=== PATIENT | male | born 1980 | race Hispanic/Latino ===

== ENCOUNTER 2017-03-28 16:27 | Emergency (ER) | payer OTHER, MEDICARE ==
[2017-03-28 16:47] VITALS: BP 128/82; TEMP 99.1
--- NOTE | 2017-03-28 17:19 | ED.PDOC ---
History of Present Illness - General Chief Complaint: Neuro Symptoms/Deficits Stated Complaint: facial drooping Time Seen by Provider: 03/28/17 17:19 Source: family Exam Limitations: clinical condition - cerebral palsy, physical impairment - cerebral palsy - History of Present Illness Initial Comments: Oleg Hudson 37 y/o male brought by mom stating that he had facial drooping on the right side of his face for the last one week whenever he talks or smiles and sometimes drooling occassionally.Patient talking to mom in garbled speech but no drooling noted.Has cerebral palsy and wheelchair bound Timing/Duration: other - one week ago Severity: moderate Improving Factors: nothing Worsening Factors: nothing Associated Symptoms: denies symptoms Allergies/Adverse Reactions: Allergies Haloperidol [From Haldol] Allergy (Verified 03/28/17 16:47) Penicillins Allergy (Verified 03/28/17 16:47) Review of Systems - Review of Systems Neurological: States: see HPI - as per mom Unable to Obtain Due To: clinical condition Past Medical History (General) - Patient Medical History Hx Asthma: Yes Hx Hypertension: Yes Hx Diabetes: Yes Hx Other PMH: Yes - cerebral palsy Surgical History: other - Vaccination History Immunizations Up to Date: Yes - Social History Hx Tobacco Use: No Hx Alcohol Use: No Hx Substance Use: No Hx Substance Use Treatment: No Hx Depression: No - Activities of Daily Living Patient Lives Alone: No - mom Hospice Agency (if applicable):: None Grooming Ability: Total Assistance Eating (Feeding) Ability: Total Assistance Toileting Ability: Total Assistance - Female History Patient is a Female of Child Bearing Age (10 -59 yrs old): No Patient : No Family Medical History - Family History Mother Family History: Unknown Hx Cardiac Disease: Yes - mom Hx Family Diabetes: Yes - several family members Physical Exam - Physical Exam General Appearance: Alert, No apparent distress Eye Exam: right other - droopy eyelid chronic, left normal Ears, Nose, Throat: hearing grossly normal, normal ENT inspection, normal pharynx Neck: non-tender, full range of motion, supple Respiratory: chest non-tender, lungs clear Cardiovascular/Chest: normal peripheral pulses, regular rate, rhythm, no murmur Peripheral Pulses: radial,right: 1+, radial,left: 1+ Gastrointestinal/Abdominal: normal bowel sounds, non tender, soft, no organomegaly Extremity: no pedal edema, no calf tenderness Neurologic: alert, facial droop - no gross facial droop noted, other - spastic extremities Skin Exam: normal color, warm/dry Lymphatic: no adenopathy Progress - Progress Progress: 03/28/17 18:43 Vital Signs - 8 hr 03/28/17 16:35 Temperature 99.1 F Pulse Rate [ 91 H pulse ox] Respiratory 18 Rate Blood Pressure 128/82 [Left Arm] O2 Sat by Pulse 97 Oximetry - Results/Orders Results/Orders: Laboratory Tests 03/28/17 03/28/17 03/28/17 17:25 17:25 19:00 WBC 12.2 H RBC 5.70 Hgb 15.3 Hct 45.2 MCV 79.2 L MCH 26.9 L MCHC 33.9 RDW 12.8 Plt Count 389 MPV 7.0 L Absolute Neuts (auto) 8.00 H Absolute Lymphs (auto) 3.00 Absolute Monos (auto) 0.70 Absolute Eos (auto) 0.40 Absolute Basos (auto) 0.20 H Neutrophils % 65.1 Lymphocytes % 24.8 Monocytes % 5.7 Eosinophils % 3.1 Basophils % 1.3 Sodium 138 Potassium 3.6 Chloride 104 Carbon Dioxide 23 Anion Gap 14.6 BUN 15 Creatinine 0.47 L BUN/Creatinine Ratio 31.9 H Random Glucose 129 H Serum Osmolality 278.2 Calcium 9.2 Total Bilirubin 0.3 AST 17 ALT 27 Alkaline Phosphatase 90 Serum Total Protein 7.9 Albumin 4.3 Globulin 3.6 H Albumin/Globulin Ratio 1.2 Urine Color Yellow Urine Appearance Clear Urine pH 6.0 Ur Specific Talent 1.025 Urine Protein Negative Urine Glucose (UA) Negative Urine Ketones Negative Urine Blood Negative Urine Nitrite Negative Urine Bilirubin Negative Urine Urobilinogen 1.0 Ur Leukocyte Esterase Negative Urine RBC 0-1 Urine WBC 0 Ur Epithelial Cells 0-1 Urine Bacteria 0 Urine Mucus Small - EKG/XRAY/CT CT Ordered: Yes - head -no acute abnormalities Departure - Departure Clinical Impression: Hx of cerebral palsy, Asymmetry of face Time of Disposition: 19:22 Disposition: Discharge to Home or Self Care Condition: Fair Departure Forms: ED Discharge - Pt. Copy, Patient Portal Self Enrollment Referrals: Karlee Poon NP [Primary Care Provider] - 1-2 Weeks Additional Instructions: FOLLOW UP WITH PRIMARY MD o04/01/2017;Continue with rest of medications
--- NOTE | 2017-03-28 17:53 | CT ---
PROCEDURE: Head HISTORY: facial droop Indication: Same as above Comparison: None Technique: CT of the head was done without intravenous contrast was done in the orthogonal planes. This exam was performed according to our departmental dose-optimization program, which includes automated exposure control, adjustment of the mA and/or KV according to the patient's size and/or use of iterative reconstruction technique. FINDINGS: There is no intracranial hemorrhage, midline shift mass effect or acute focal infarct. If clinical concern exists regarding an acute ischemic/vascular pathology being responsible for patient's symptomatology, an MRI of the brain is more sensitive than the current study, in ruling out such a possibility. There is good carvajal/white matter differentiation. The ventricular system is normal. The mastoid air cells are unremarkable . The paranasal sinuses are unremarkable . There is no visualization of acute fractures involving the calvarium or the skull base. IMPRESSION: There is no acute intracranial abnormality. Electronically signed by: Quinten De Los Santos MD 03/28/2017 5:52 PM CDT Workstation: [id number]
[2017-03-28 19:30] VITALS: O2SAT 96
== END 2017-03-28 20:03 | disposition home or self-care (01) ==
LOC: ER 16:27
DX: Q67.0 Congenital facial asymmetry (principal); G80.9 Cerebral palsy, unspecified; I10 Essential (primary) hypertension; E11.9 Type 2 diabetes mellitus without complications; Z88.0 Allergy status to penicillin; Z88.6 Allergy status to analgesic agent

== ENCOUNTER → 2018-09-01 | Outpatient (CLI) | payer MEDICARE, MEDICAID ==
--- NOTE | 2018-09-01 09:15 | CT ---
EXAM DESCRIPTION: Abdoment/Pelvis w/o Contrast CLINICAL HISTORY: R10.9 generalized abdominal pain COMPARISON: None. TECHNIQUE: Noncontrast transaxial CT images of the abdomen and pelvis are obtained. Images are moderately degraded by patient breathing motion artifact limiting detailed evaluation. This exam was performed according to our departmental dose-optimization program, which includes automated exposure control, adjustment of the mA and/or kV according to patient size and/or use of iterative reconstruction technique . FINDINGS: Visualized lung bases show no acute findings. Mild gynecomastia is seen right greater than left. Given the limitations of a noncontrast exam and motion artifact the liver, spleen, pancreas, adrenal glands, and gallbladder are unremarkable. Mild atherosclerotic disease is seen. No nephrolithiasis. No ureteral calcification or obstruction is seen. Urinary bladder is poorly distended but unremarkable. Moderate prostate calcifications are seen. The appendix measures 9 mm greatest diameter without obvious surrounding fat stranding or inflammation. Stomach is poorly distended and unremarkable. No small bowel obstruction or bowel wall thickening is seen. The colon is grossly unremarkable. Stool filled distention of the rectum is seen measuring 6.9 x 6.9 cm. No pathologic lymphadenopathy. No free intraperitoneal air or abnormal fluid collections. Postsurgical changes to the right hip are partly visualized. Postsurgical changes or remote posttraumatic changes to the right acetabulum are seen. 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 There is somewhat shallow acetabula bilaterally. Varus deformity of the right hip is suggested . Mild curvature of the lumbar spine with convexity towards the left. Borderline external iliac chain lymph nodes bilaterally measure up to 9 mm short axis. IMPRESSION: No acute findings on noncontrast CT of the abdomen and pelvis given limitations of the exam from patient motion artifact. The appendix is mildly enlarged, but no wall thickening or associated inflammatory changes are seen to suggest acute appendicitis. No CT evidence of nephrolithiasis or ureteral obstruction. Probable fecal impaction in the rectum is distended with stool. Electronically signed by: Jean Rivas MD 09/01/2018 9:14 AM DATA MODELING SPECIALIST
== END ==
LOC: CT 08:14
PROVIDERS: ATTEND Urology
DX: R10.9 Unspecified abdominal pain (principal)

== ENCOUNTER → 2019-03-09 | Outpatient (CLI) | payer MEDICARE, MEDICAID ==
--- NOTE | 2019-03-09 15:03 | RAD ---
2 Radiographs of the Abdomen. Indication: Abdominal pain Comparison: None. Impression: Mild constipation noted. No signs of obstruction.. No abnormal calcifications. Postsurgical changes of the right hip noted in addition to a coxa magna deformity femoral head and foreshortening of the femoral neck. Electronically signed by: Mike Logan MD 03/09/2019 3:01 PM CDT
== END ==
LOC: YCFC.O 11:59
PROVIDERS: ATTEND Nurse Practitioner Family
DX: Z00.01 Encounter for general adult medical examination with abnormal findings (principal); K59.00 Constipation, unspecified; E11.69 Type 2 diabetes mellitus with other specified complication; E55.9 Vitamin D deficiency, unspecified; Z98.890 Other specified postprocedural states

== ENCOUNTER 2019-06-08 05:48 | Inpatient (IN) | payer MEDICARE, MEDICAID ==
[2019-06-08] MEDS ORDERED: SODIUM CHLORIDE 0.9% (FLUSH) 10 ML SYG IV PRN ×3 (06:34→10:09)
--- NOTE | 2019-06-08 06:35 | ED.PDOC ---
History of Present Illness - History of Present Illness Initial Comments: Pt grand mother c/o fast breathing , difficulty in breathing since 1 day , no fever or chills Timing/Duration: intermittent Severity: mild, moderate Improving Factors: nothing Worsening Factors: nothing Associated Symptoms: shortness of breath <Deny ALVARADO - Last Filed: 06/08/19 06:33> <Darin Robbins - Last Filed: 06/08/19 07:40> - General Chief Complaint: General Stated Complaint: fast, heavy breathing since yesterday Time Seen by Provider: 06/08/19 06:10 - History of Present Illness Allergies/Adverse Reactions: Allergies Ampicillin Allergy (Verified 06/08/19 06:05) Haloperidol [From Haldol] Allergy (Verified 03/28/17 16:47) Penicillins Allergy (Verified 03/28/17 16:47) Home Medications: Ambulatory Orders Baclofen 10 mg PO DAILY 06/08/19 Hydroxyzine HCl 25 mg PO Q6HR PRN 06/08/19 Lisinopril 5 mg PO DAILY 06/08/19 Metformin HCl [Metformin HCl ER] 500 mg PO BID 06/08/19 Naproxen [Naproxen EC] 500 mg PO BID PRN 06/08/19 Phenytoin 125 mg PO BID 06/08/19 Review of Systems - Review of Systems Constitutional: States: no symptoms reported EENTM: States: no symptoms reported Respiratory: States: see HPI Cardiology: States: no symptoms reported Gastrointestinal/Abdominal: States: no symptoms reported Genitourinary: States: no symptoms reported Musculoskeletal: States: no symptoms reported Skin: States: no symptoms reported Neurological: States: no symptoms reported Endocrine: States: no symptoms reported Hematologic/Lymphatic: States: no symptoms reported <Deny ALVARADO - Last Filed: 06/08/19 06:33> Past Medical History (General) - Patient Medical History Hx Seizures: No Hx Stroke: No Hx Dementia: No Hx Asthma: Yes Hx of COPD: No Hx Cardiac Disorders: No Hx Congestive Heart Failure: No Hx Pacemaker: No Hx Hypertension: Yes Hx Thyroid Disease: No Hx Diabetes: Yes Hx Gastroesophageal Reflux: No Hx Renal Disease: No Hx Cancer: No Hx of HIV: No Hx Hepatitis C: No Hx MRSA: No Surgical History: other - Vaccination History Hx Tetanus, Diphtheria Vaccination: No Hx Influenza Vaccination: No - Social History Hx Tobacco Use: No Hx Alcohol Use: No Hx Substance Use: No Hx Substance Use Treatment: No Hx Depression: No - Female History Patient : No <Deny ALVARADO - Last Filed: 06/08/19 06:33> Family Medical History - Family History Mother Family History: Unknown Hx Cardiac Disease: Yes - mom Hx Family Diabetes: Yes - several family members <Deny ALVARADO - Last Filed: 06/08/19 06:33> Physical Exam - Physical Exam General Appearance: Comfortable Eye Exam: bilateral normal Ears, Nose, Throat: hearing grossly normal Neck: non-tender Respiratory: chest non-tender, lungs clear, normal breath sounds Gastrointestinal/Abdominal: non tender, soft Back Exam: normal inspection Extremity: normal range of motion, non-tender, normal inspection Neurologic: other - Mental retardation Skin Exam: normal color <Deny ALVARADO - Last Filed: 06/08/19 06:33> Progress - Progress Progress: 06/08/19 07:25 Pt turned over to me from Dr. Alvarado. Pt w increased resp rate per mom since last night. No fever, cough or respiratory sxs. Pt's CXR is clear but his CMP shows DKA. WBC elevated, possibly reactive, but pt cultured and IV rocephin ordered for possible early PNA. IVF and IV insulin drip begun. Will admit for DKA mgmt. 06/08/19 07:36 Pt'd DD is elevated by I have extremely low clinical suspicion for PE given that his increased respiratory rate is readily explained by DKA. Will not order CTA at this time. Have d/w Dr. Bolivar, hospitalist, who accepts pt for admission. He requests ABG. - Results/Orders Results/Orders: 06/08/19 06:34 IV Care:Saline Lock per Protoc QSHIFT Telemetry .ONCE Sodium Chloride 0.9% (Flush) [Saline Flush Syringe] 10 ml IV PRN PRN EKG Assessment ONCE EKG Stat Pulse Ox Stat Pulse Oximetry Assessment DAILY 06/08/19 07:15 Sodium Chloride 0.9% 1000ML [Ns 1000 ml] 1,000 ml IVS ONCE cefTRIAXone SODIUM [Rocephin] 1 gm Sodium Chl 0.9% 50Ml Min-Bag+ [NS 50ml MINI-BAG+] 50 ml IVPB ONCE 06/08/19 07:17 Sodium Chloride 0.9% (Flush) [Saline Flush Syringe] 10 ml IV PRN PRN 06/08/19 07:18 IV Care:Saline Lock per Protoc QSHIFT URINALYSIS Stat 06/08/19 07:19 EKG Assessment ONCE Pulse Oximetry Assessment DAILY 06/08/19 07:21 GLUCOSE, FINGER STICK Q1H 06/08/19 07:22 BLOOD CULTURE Stat 06/08/19 07:29 LACTIC ACID Stat 06/08/19 07:30 Insulin, Reg.(Human) [HumuLIN R] 250 units Sodium Chl 0.9% 250Ml (Jinny) [NS 250ml (JINNY)] 247.5 ml IVPB Q12H EKG STAT 06/08/19 07:35 ABG [Arterial Blood Gas] Stat 06/08/19 08:21 GLUCOSE, FINGER STICK Q1H 06/08/19 09:00 Pulse Ox Daily 06/08/19 09:21 GLUCOSE, FINGER STICK Q1H 06/08/19 10:21 GLUCOSE, FINGER STICK Q1H Laboratory Results - last 24 hr 06/08/19 06/08/19 06/08/19 06:22 06:22 06:22 WBC 15.0 H RBC 5.70 Hgb 15.5 Hct 46.8 MCV 82.1 MCH 27.2 MCHC 33.2 RDW 12.8 Plt Count 350 MPV 8.1 Absolute Neuts (auto) 8.80 H Absolute Lymphs (auto) 4.50 H Absolute Monos (auto) 1.20 H Absolute Eos (auto) 0.30 Absolute Basos (auto) 0.20 H Neutrophils % 58.6 Lymphocytes % 30.0 Monocytes % 7.9 Eosinophils % 2.2 Basophils % 1.3 PT 10.3 INR 1.03 PTT (SP) 23.2 D-Dimer, Quantitative 0.62 H* Sodium 140 Potassium 3.2 L Chloride 104 Carbon Dioxide 18 L Anion Gap 21.2 H BUN 7 Creatinine 0.75 BUN/Creatinine Ratio 9.3 L POC Glucose Random Glucose 317 H Serum Osmolality 289.5 Calcium 9.2 Magnesium 1.9 Total Bilirubin 0.8 Direct Bilirubin 0.1 Indirect Bilirubin 0.7 AST 85 H ALT 125 H Alkaline Phosphatase 88 Creatine Kinase 302 H* CK-MB (CK-2) 3.3 CK-MB (CK-2) % Not Reportable Troponin I < 0.02 B-Natriuretic Peptide 8.0 Serum Total Protein 7.8 Albumin 4.5 Serum Ketones Negative 06/08/19 07:23 WBC RBC Hgb Hct MCV MCH MCHC RDW Plt Count MPV Absolute Neuts (auto) Absolute Lymphs (auto) Absolute Monos (auto) Absolute Eos (auto) Absolute Basos (auto) Neutrophils % Lymphocytes % Monocytes % Eosinophils % Basophils % PT INR PTT (SP) D-Dimer, Quantitative Sodium Potassium Chloride Carbon Dioxide Anion Gap BUN Creatinine BUN/Creatinine Ratio POC Glucose 281 H Random Glucose Serum Osmolality Calcium Magnesium Total Bilirubin Direct Bilirubin Indirect Bilirubin AST ALT Alkaline Phosphatase Creatine Kinase CK-MB (CK-2) CK-MB (CK-2) % Troponin I B-Natriuretic Peptide Serum Total Protein Albumin Serum Ketones <Darin Robbins - Last Filed: 06/08/19 07:40> Departure <Deny ALVARADO - Last Filed: 06/08/19 06:33> - Departure Time of Disposition: 07:39 <Darin Robbins - Last Filed: 06/08/19 07:40> - Departure Clinical Impression: DKA (diabetic ketoacidoses), Hx of cerebral palsy Disposition: Admit Patient Condition: Fair Home Medications: Ambulatory Orders Baclofen 10 mg PO DAILY 06/08/19 Hydroxyzine HCl 25 mg PO Q6HR PRN 06/08/19 Lisinopril 5 mg PO DAILY 06/08/19 Metformin HCl [Metformin HCl ER] 500 mg PO BID 06/08/19 Naproxen [Naproxen EC] 500 mg PO BID PRN 06/08/19 Phenytoin 125 mg PO BID 06/08/19 Decision To Admit - Decistion To Admit Decision to Admit Reason: Admit from ER Decision to Admit Date: 06/08/19 Decision to Admit Time: 07:40 <Darin Robbins - Last Filed: 06/08/19 07:40> Addendum entered and electronically signed by Darin Robbins MD 06/08/19 07:45: Departure - Departure Clinical Impression: DKA (diabetic ketoacidoses), Hx of cerebral palsy Disposition: Admit Patient Condition: Fair Departure Forms: ED Discharge - Pt. Copy, Patient Portal Self Enrollment Referrals: Karlee Poon NP [Primary Care Provider] - 1-2 Weeks Home Medications: Ambulatory Orders Baclofen 10 mg PO DAILY 06/08/19 Hydroxyzine HCl 25 mg PO Q6HR PRN 06/08/19 Lisinopril 5 mg PO DAILY 06/08/19 Metformin HCl [Metformin HCl ER] 500 mg PO BID 06/08/19 Naproxen [Naproxen EC] 500 mg PO BID PRN 06/08/19 Phenytoin 125 mg PO BID 06/08/19 ED Addendum - ED Addendum Addendum: EKG: sinus tachycardia, rate 113, LAD, nl QRS, T inv III and aVF, nl ST, Q infer ior and anterior. Neg STEMI.
--- NOTE | 2019-06-08 07:02 | RAD ---
EXAM: XR Chest, 1 View CLINICAL HISTORY: sob TECHNIQUE: Frontal view of the chest. COMPARISON: No relevant prior studies available. FINDINGS: Limitations: None. Lungs: Shallow inspiration with mild right medial atelectasis. Pleural space: Unremarkable. No pneumothorax. Heart: Unremarkable. No cardiomegaly. Mediastinum: Unremarkable. Bones/joints: Unremarkable. IMPRESSION: Shallow inspiration with mild right medial atelectasis. Electronically signed by: Shy Acevedo MD 06/08/2019 7:01 AM CDT
[2019-06-08] MEDS ORDERED: cefTRIAXone SODIUM 1 GM in SODIUM CHL 0.9% 50ML MIN-BAG+ 50 ML IVPB ONE (07:15)
[2019-06-08] MEDS ORDERED: SODIUM CHLORIDE 0.9% 1000ML 1,000 ML IVS ONE ×3 (07:15→10:33)
[2019-06-08] MEDS ORDERED: INSULIN, REG.(HUMAN) 250 UNITS in SODIUM CHL 0.9% 250ML (AVIVA) 247.5 ML IVPB SCH ×2 (07:30)
[2019-06-08] MEDS ORDERED: SODIUM CHL 0.9% 50ML MIN-BAG+ 50 ML IVPB ONE (07:40)
[2019-06-08] MEDS ORDERED: cefTRIAXone SODIUM 1 GM VIAL ONE (07:40)
[2019-06-08] MEDS ORDERED: INSULIN, REG.(HUMAN) 100 U/ML VIAL ONE (08:12)
[2019-06-08] MEDS ORDERED: SODIUM CHL 0.9% 250ML (AVIVA) 250 ML IVPB ONE (08:12)
--- NOTE | 2019-06-08 08:27 | HP ---
SUPERVISING PHYSICIAN: Fransisco Hodgson MD HISTORY OF PRESENT ILLNESS: Mr. Hudson is a 39-year-old male with a history of severe mental retardation and cerebral palsy. He was brought to the Emergency Room today via 911 after his family noted that he had been having some increased respiratory efforts, breathing fast, in the last 24 hours and significantly worsened this morning. The family also noted that he had been complaining of some left sided abdominal pain and has been sweating. Both the family and the patient are poor historians. Therefore, most of the history and physical are obtained from the Emergency Room record as well as past medical history from the previous charts. The patient has a history of diabetes and hypertension. On initial presentation to the Emergency Room, his labs showed he had a leukocytosis with a white count of 15,000 with a left shift. His chemistries showed blood sugar on presentation to the Emergency Room of 317. Anion gap was elevated at 21 with a carbon dioxide of 18. ABG was attempted, but not successfully completed. His liver functions showed some elevation of AST at 85 and ALT 125. Troponin was less than 0.02, CPK was slightly elevated at 302. He did have a lactic acid of 3.8 initially on presentation to the Emergency Room, but was hemodynamically stable with initial vital signs showing temperature 98.8, tachycardic at 126 with blood pressure 144/81, saturation 97% on room air. He had a single-view chest x-ray and per radiologic interpretation showed shallow inspirations with mild right medial atelectasis. Urinalysis was not obtained on admission to the Emergency Room. It was initially felt the patient was possibly in diabetic ketoacidosis given that he was acidotic given his anion gap and his blood sugar, but he had negative ketones. Blood cultures were completed and he was started on antibiotics initially to include Rocephin. He was given a liter of IV fluids. He was also started on insulin drip and is now going to be admitted to the Medical/Surgical Floor for continuation of treatment with concerns for possible pneumonia versus bladder infection resulting in hyperglycemia with no evidence of true diabetic ketoacidosis. He was admitted in stable condition. PAST MEDICAL HISTORY: 1. Cerebral palsy and severe mental retardation. 2. Diabetes mellitus. 3. Hypertension. PAST SURGICAL HISTORY: 1. Multiple hip surgeries as a child. 2. No other major medical surgeries. HOME MEDICATIONS: 1. Baclofen 10 mg daily. 2. Naprosyn 500 mg b.i.d. as needed. 3. Lisinopril 5 mg daily. 4. Hydroxyzine 25 mg q.6h. as needed. 5. Phenytoin 25 mg b.i.d. 6. Metformin 500 mg b.i.d. ALLERGIES: AMPICILLIN, HALOPERIDOL, PENICILLIN. REVIEW OF SYSTEMS: Difficult to obtain due to the patient's mental status, but the family reports: CONSTITUTIONAL: He has been having some sweats, but no reported fevers, chills or rigors. No significant weight changes. HEENT: No reported earaches, but has had some complaints of sore throat over the last 24 to 48 hours. 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 RESPIRATORY: As noted in history of present illness, increased respiratory effort. CARDIOVASCULAR: No reported chest pain, palpitations. GASTROINTESTINAL: The family notes he has been complaining of left sided abdominal pain, more to the lower quadrant, but no noted diarrhea, constipation or any other significant bowel habit changes. GENITOURINARY: He has had bladder infections in the past, but the family notes he has had an increase of his output from increased number of wet briefs. NEUROLOGIC: No reported changes with history of cerebral palsy. He is not ambulatory and cannot transfer himself. No report significant changes from baseline. SKIN: No reported lesions, rashes or other changes. HEMATOLOGIC: No reported easy bruising or unexplained bleeding. PHYSICAL EXAMINATION: VITAL SIGNS: Temperature 98.8. Pulse 126. Blood pressure 140/81. Respirations 20. Saturation 97% on room air. GENERAL: The patient appears to be in no acute distress. He appears comfortable. He smiles when you talk to him and shake his hand, but is not completely verbal. He is noted to be at his baseline per his family members. HEENT: Tympanic membranes clear bilaterally. Oropharynx is mildly erythremic , posterior tonsils appear slightly enlarge but without any exudate, moist without any lesions. NECK: Supple, nontender with full range of motion. No jugular venous distention noted. RESPIRATORY: Lungs clear to auscultation, just diminished at the bases. No obvious rhonchi, wheezes or rales. CARDIOVASCULAR: Regular rate and rhythm, but tachycardic on initial exam. No appreciable murmurs, gallops, or rubs. ABDOMEN: Soft. No tenderness noted on palpation of any quadrant. No rebound tenderness, no guarding. Bowel sounds are active. EXTREMITIES: He is moving all extremities ad christina. There is no notable cyanosis, clubbing or edema. NEUROLOGIC: The patient is alert and oriented per baseline per family members. He interacts with family and myself during exam with no notable motor deficits. 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 He does follow basic commands. He moves all extremities ad christina. LABORATORY: White count 15,000, hemoglobin 15.5, hematocrit 46.8, platelet count 350,000, differential without a left shift. Coagulation studies showed normal PT, PTT, but elevated D-dimer at 0.62. Chemistries initially on presentation showed sodium 140 corrected for 317 blood sugar at 143. Potassium 3.2, chloride 104, anion gap elevated at 21 with carbon dioxide 18, lactic acid 3.8, calcium 9.2. Liver functions showed elevated AST and ALT. CPK elevated at 302. Troponins less than 0.02. Serum ketones were negative. Urinalysis pending. MICROBIOLOGY: Influenza swab for A and B PCR is pending. Rapid group A strep is positive. Blood cultures pending. RADIOLOGY: CT of the chest is pending. Chest x-ray in the Emergency Room showed shallow inspirations with mild right medial atelectasis. ASSESSMENT: 1. Metabolic acidosis with elevated blood sugar, but no evidence of diabetic ketoacidosis. Likely source of acidosis is sepsis with presumed community acquired pneumonia with Group A Strep pharyngitis. 2. Sepsis with the patient showing metabolic acidosis and tachycardia with infectious source noted to be Group A pharyngitis and concern for developing pneumonia. 3. Diabetes mellitus, type 2, on oral therapy with poor control. 4. Hypertension, stable. 5. Cerebral palsy with severe mental retardation. PLAN: Mr. Hudson is going to be admitted for initiation of therapy and treatment for underlying sepsis , GAS pharyngitis and concerns for possible bacteremia and community acquired pneumonia with urinalysis pending. He was started on Rocephin. This will be continued with Clindamycin as he is allergic to penicillins and there is a concern for bacteremia due to GAS. He will be given fluids 30 mL per kg and then follow with maintenance according to repeat lab studies. We will resume his home medications once those have been updated and verified. He will be on an 1800 calorie ADA diet. He will be on DVT prophylaxis per protocol. We will await CT of the chest to help rule out pneumonia . He has low probability of pulmonary embolism. He has sever mental retardation and I am not sure if he will be able to sit still to get adequate imaging studies. We will await a urine to further rule out any other infectious source such as urinary tract infection. He is on insulin protocol per sliding scale. I anticipate his length of stay to be 2 to 3 days. Until the patient can transition to outpatient management, we will continue to monitor and treat as needed. #[id number] [facility]
[2019-06-08] MEDS ORDERED: DEXTROSE 50% 25 GM/50 ML SYG IV PRN (10:14)
[2019-06-08] MEDS ORDERED: GLUCAGON INJ 1 MG VIAL SUBCU PRN (10:14)
[2019-06-08] MEDS ORDERED: IV SET AND CAP CHANGE INJ INJ SCH (10:30)
[2019-06-08] MEDS ORDERED: AZITHROMYCIN IV 500 MG in SODIUM CHLORIDE 0.9% 250ML 250 ML IVPB SCH (10:30)
[2019-06-08] MEDS ORDERED: SODIUM CHLORIDE 0.9% 250ML 250 ML ONE (11:22)
[2019-06-08] MEDS ORDERED: AZITHROMYCIN IV 500 MG VIAL IVPB ONE (11:23)
[2019-06-08] MEDS: PHENYTOIN 125 MG/5 ML PO SCH ×2 (11:31→21:43)
[2019-06-08] MEDS: LISINOPRIL 5 MG TAB PO SCH (11:31)
[2019-06-08] MEDS: BACLOFEN 10 MG TAB PO SCH (11:31)
[2019-06-08] MEDS: metFORMIN XR 500 MG TAB.ER.24 PO SCH ×2 (11:32→17:33)
[2019-06-08] MEDS: INSULIN LISPRO 100 UNITS/ML PEN SUBCU SCH ×3 (12:00→21:43)
[2019-06-08] MEDS ORDERED: ENOXAPARIN SODIUM 80 MG/0.8 ML SYG SUBCU SCH (12:00)
[2019-06-08] MEDS: KCL 20MEQ/0.45% NS 1,000 ML IVS PRN ×2 (12:16→17:32)
[2019-06-08] MEDS ORDERED: ALPRAZolam 0.25 MG TAB ONE (13:31)
[2019-06-08] MEDS ORDERED: ALPRAZolam 0.25 MG TAB PO ONE (13:33)
--- NOTE | 2019-06-08 14:56 | CT ---
EXAM DESCRIPTION: Chest w/o Contrast CLINICAL HISTORY: 39 years Male, elevated Ddimer, TACHY and SOB TECHNIQUE: This exam was performed according to our departmental dose-optimization program, which includes automated exposure control, adjustment of the mA and/or kV according to patient size and/or use of iterative reconstruction technique. COMPARISON: Same day chest radiograph FINDINGS: The thyroid gland is unremarkable. No axillary adenopathy. Normal caliber thoracic aorta. No pericardial effusion. Steatosis. No evidence of acute process in the upper abdomen. Evaluation limited by motion artifact, patient positioning and technique. No pneumothorax. No pleural effusion. No focal consolidation or suspicious pulmonary nodule. Evaluation of the pulmonary arteries is precluded by the lack of intravenous contrast. No acute or suspicious osseous abnormality. Scattered degenerative changes present. Evaluation limited by patient motion. No definitive fracture is identified. IMPRESSION: No evidence acute process within the chest given the limitations of a noncontrast technique and patient motion. Electronically signed by: Ricky Robertson MD 06/08/2019 2:54 PM CDT
[2019-06-08] MEDS ORDERED: CLINDAMYCIN IV 900MG 900 MG in PREMIX BAG 1 BAG IVPB SCH (15:00)
[2019-06-08] MEDS ORDERED: NAPROXEN 250 MG TAB PO ONE (15:06)
[2019-06-08] MEDS ORDERED: CLINDAMYCIN IV 900MG 50 ML IVPB ONE (23:22)
[2019-06-08] MEDS: CLINDAMYCIN IV 900MG 900 MG in PREMIX BAG 1 BAG IVPB SCH (23:23)
[2019-06-09] MEDS: ACETAMINOPHEN 325 MG TAB PO PRN ×2 (00:23→07:31)
[2019-06-09] MEDS: KCL 20MEQ/0.45% NS 1,000 ML IVS PRN ×3 (00:52→20:40)
[2019-06-09] MEDS ORDERED: CLINDAMYCIN IV 900MG 50 ML IVPB ONE ×4 (05:20→19:46)
[2019-06-09] MEDS: PANTOPRAZOLE SODIUM IV 40 MG VIAL IV SCH (06:06)
[2019-06-09] MEDS: CLINDAMYCIN IV 900MG 900 MG in PREMIX BAG 1 BAG IVPB SCH ×3 (06:08→22:05)
--- NOTE | 2019-06-09 07:55 | RAD ---
EXAM DESCRIPTION: Chest,1 View CLINICAL HISTORY: 39 years Male, Pneumonia COMPARISON: 06/08/2019 Findings: Low lung volumes limit evaluation. Cardiac silhouette and pulmonary vasculature are grossly within normal limits. Perihilar interstitial opacities, increased from the previous examination. No pneumothorax. No definite pleural effusion. Otherwise no significant interval change. IMPRESSION: Increased interstitial perihilar opacities which may reflect atelectasis or pneumonia. Electronically signed by: Ricky Robertson MD 06/09/2019 7:54 AM CDT
[2019-06-09] MEDS ORDERED: SODIUM CHL 0.9% 50ML MIN-BAG+ 50 ML IVPB ONE (08:09)
[2019-06-09] MEDS ORDERED: cefTRIAXone SODIUM 1 GM VIAL ONE (08:10)
[2019-06-09] MEDS: INSULIN LISPRO 100 UNITS/ML PEN SUBCU SCH ×4 (08:18→21:01)
[2019-06-09] MEDS: cefTRIAXone SODIUM 1 GM in SODIUM CHL 0.9% 50ML MIN-BAG+ 50 ML IVPB SCH (08:23)
[2019-06-09] MEDS: ENOXAPARIN SODIUM 40 MG/0.4 ML SYG SUBCU SCH (08:36)
[2019-06-09] MEDS: BACLOFEN 10 MG TAB PO SCH (08:36)
[2019-06-09] MEDS: LISINOPRIL 5 MG TAB PO SCH (08:37)
[2019-06-09] MEDS: PHENYTOIN 125 MG/5 ML PO SCH ×2 (08:37→20:31)
[2019-06-09] MEDS ORDERED: ALUMINUM & MAGNESIUM HYDROXIDE 30 ML UD PO PRN (09:12)
[2019-06-09] MEDS ORDERED: MAGNESIUM SULFATE PREMIX 2GM 2 GM in PREMIX BAG 1 BAG IVPB ONE (09:18)
[2019-06-09] MEDS ORDERED: MAGNESIUM SULFATE PREMIX 2GM 50 ML IVPB ONE (09:25)
[2019-06-09] MEDS: BIFIDOBACTERIUM INFANTIS 4 MG CAP PO SCH ×2 (09:33→20:31)
--- NOTE | 2019-06-09 10:07 | PN ---
SUPERVISING PHYSICIAN: Fransisco Hodgson MD DATE: 06/09/19 SUBJECTIVE: The patient is lying in bed asleep. His grandmother is at the bedside. She said she had a much restful night after he received his Ativan. He did not do well on Xanax. He also complains of some abdominal discomfort and some mild diarrhea. I explained to her that most likely is from the antibiotics. Otherwise, she feels like he has progressively improved and it is reported from the nursing staff that he is continued to get better. OBJECTIVE: VITAL SIGNS: T-max 24 hours is 99.8. Heart rate 78 and has been as high as 95. Blood pressure 97/56. Respiratory rate 24. O2 saturation 95% on room air. RESPIRATORY: Diminished at the bases. At times, he is slightly tachypneic. CARDIAC: Regular rate and rhythm. GASTROINTESTINAL: Abdomen is soft, nondistended. Bowel sounds are positive. NEUROLOGIC: He awakens easily and he is alert. LABORATORY: WBCs have improved to 13,200 with hemoglobin 13.7, hematocrit 41. Electrolytes are basically within normal limits with the exception of magnesium is low at 1.6. Creatinine kinase 692. Preliminary blood cultures show no growth after 24 hours. Urine culture is pending. Chest x-ray shows increased interstitial perihilar opacities that may reflect atelectasis or pneumonia. CT of the chest shows no evidence of acute process within the chest given the limitations of a noncontrast technique and patient motion. All other labs and films have been reviewed via the EMR. ASSESSMENT: 1. Metabolic acidosis with elevated blood sugar, but no evidence of diabetic ketoacidosis. Likely source of acidosis is sepsis with presumed community acquired pneumonia with Group A Strep pharyngitis. 2. Sepsis with the patient showing metabolic acidosis and tachycardia with infectious source noted to be Group A pharyngitis and concern for developing pneumonia. 3. Diabetes mellitus, type 2, on oral therapy with poor control. 4. Hypertension, stable. 5. Cerebral palsy with severe mental retardation. 6. Abdominal pain with mild diarrhea, most likely secondary to antibiotic administration. 7. Hypomagnesemia requiring supplementation. PLAN: We will continue present supportive care. We will continue to watch for his cultures. Continue present antibiotic therapy. I have added Align twice daily to help with his abdominal pain and diarrhea. I have also given him some magnesium supplementation and given him Maalox as needed. IV fluids have been decreased to 50. I will order routine lab and chest x-ray in the morning. His Xanax will not be continued and I will give him p.r.n. Ativan at a very low dose as needed for agitation. Hopefully he can be discharged in the next 2 to 3 days. We will continue to monitor closely and follow as needed. [id number]
[2019-06-09] MEDS ORDERED: ONDANSETRON INJ 4 MG/2 ML VIAL IV ONE (21:28)
[2019-06-10] MEDS: PANTOPRAZOLE SODIUM IV 40 MG VIAL IV SCH (06:08)
[2019-06-10] MEDS: CLINDAMYCIN IV 900MG 900 MG in PREMIX BAG 1 BAG IVPB SCH (06:13)
[2019-06-10] MEDS ORDERED: metFORMIN HCL 500 MG TAB ONE (07:07)
[2019-06-10] MEDS: INSULIN LISPRO 100 UNITS/ML PEN SUBCU SCH ×4 (07:10→20:49)
[2019-06-10] MEDS ORDERED: metFORMIN XR 500 MG TAB.ER.24 PO ONE ×2 (07:23→14:36)
[2019-06-10] MEDS: metFORMIN XR 500 MG TAB.ER.24 PO SCH ×2 (07:25→16:21)
--- NOTE | 2019-06-10 07:59 | RAD ---
EXAM DESCRIPTION: Chest,1 View CLINICAL HISTORY: 39 years Male, pna COMPARISON: Yesterday Findings: Cardiac silhouette exaggerated by technique. No pneumothorax. No pleural effusion. No pulmonary vascular congestion. No focal consolidation. No acute osseous abnormality. Similar perihilar atelectasis due to low lung volumes. No findings to suggest pneumonia. Otherwise no significant interval change. IMPRESSION: Similar perihilar atelectasis. Electronically signed by: Ricky Robertson MD 06/10/2019 7:57 AM CDT
[2019-06-10] MEDS ORDERED: cefTRIAXone SODIUM 1 GM VIAL ONE (09:03)
[2019-06-10] MEDS ORDERED: SODIUM CHL 0.9% 50ML MIN-BAG+ 0 ML IVPB ONE (09:03)
[2019-06-10] MEDS: CLINDAMYCIN HCL CAP 150 MG CAP PO SCH ×3 (10:11→20:45)
[2019-06-10] MEDS: LISINOPRIL 5 MG TAB PO SCH (10:11)
[2019-06-10] MEDS: LORazepam 0.5 MG TAB PO PRN ×2 (10:11→16:24)
[2019-06-10] MEDS: CEFDINIR 300 MG CAP PO SCH ×2 (10:12→20:11)
[2019-06-10] MEDS: PHENYTOIN 125 MG/5 ML PO SCH ×2 (10:12→20:11)
[2019-06-10] MEDS: BACLOFEN 10 MG TAB PO SCH (10:12)
[2019-06-10] MEDS: ENOXAPARIN SODIUM 40 MG/0.4 ML SYG SUBCU SCH (10:12)
[2019-06-10] MEDS: BIFIDOBACTERIUM INFANTIS 4 MG CAP PO SCH ×2 (10:12→20:11)
[2019-06-10] MEDS: cefTRIAXone SODIUM 1 GM in SODIUM CHL 0.9% 50ML MIN-BAG+ 50 ML IVPB SCH (10:25)
--- NOTE | 2019-06-10 11:01 | PN ---
SUPERVISING PHYSICIAN: Fransisco Hodgson MD DATE: 06/10/19 SUBJECTIVE: The patient is sitting up in bed. He is much more alert today. His mother is at the bedside. He pulled out his IV earlier today and I discussed with his mother that we would change him to oral medications and see how he tolerated those overnight. We are still awaiting his culture results. His mother said he has had no complaints of shortness of breath, nausea or vomiting. OBJECTIVE: VITAL SIGNS: Temperature 98. Heart rate 72. Blood pressure 105/76. Respiratory rate 20. O2 saturation 95% on room air. RESPIRATORY: Slightly diminished at the bases with a few scattered rhonchi. The right is clear to auscultation. CARDIAC: Regular rate and rhythm. GASTROINTESTINAL: Abdomen is soft, nondistended. Bowel sounds are positive. NEUROLOGIC: He is awake and alert. LABORATORY: WBCs 8,500, hemoglobin 13.3, hematocrit 39.8. Electrolytes are basically within normal limits. Calcium is up to 1.9. Blood sugars have run between 158 and 211. Urine culture is pending. Preliminary blood cultures show no growth after 48 hours. Chest x-ray shows similar perihilar atelectasis. All other labs and films have been reviewed via the EMR. ASSESSMENT: 1. Metabolic acidosis with elevated blood sugar, but no evidence of diabetic ketoacidosis. Likely source of acidosis is sepsis with presumed community acquired pneumonia with Group A Strep pharyngitis. 2. Sepsis with the patient showing metabolic acidosis and tachycardia with infectious source noted to be Group A pharyngitis and concern for developing pneumonia. 3. Diabetes mellitus, type 2, on oral therapy with poor control. 4. Hypertension, stable. 5. Cerebral palsy with severe mental retardation. 6. Abdominal pain with mild diarrhea, most likely secondary to antibiotic administration. 7. Hypomagnesemia, resolved after supplementation. PLAN: We will continue present supportive care. At this point, I have discontinued his IV medications. He has been transitioned to Ativan p.o. p.r.n. as well as clindamycin and cefdinir in the oral version. We will hold off on lab in the morning. At discharge, we will need to get an appointment with physical therapy for measurements of his wheelchair so they can get with [facility] provider to fit his wheelchair. Hopefully, we can discharge tomorrow. [facility][id number] [facility]
[2019-06-10] MEDS: ACETAMINOPHEN 325 MG TAB PO PRN (18:46)
[2019-06-10] MEDS ORDERED: IBUPROFEN 400 MG TAB PO PRN (18:59)
[2019-06-10] MEDS ORDERED: ACETAMINOPHEN 325 MG TAB PO PRN (19:00)
[2019-06-10] MEDS ORDERED: SODIUM CHLORIDE 0.45% 1000ML 1,000 ML IVS ONE (22:30)
[2019-06-11] MEDS: CLINDAMYCIN HCL CAP 150 MG CAP PO SCH ×4 (03:21→21:43)
[2019-06-11] MEDS: PANTOPRAZOLE SODIUM IV 40 MG VIAL IV SCH (06:04)
[2019-06-11] MEDS ORDERED: metFORMIN XR 500 MG TAB.ER.24 PO ONE ×2 (07:22→14:45)
[2019-06-11] MEDS: INSULIN LISPRO 100 UNITS/ML PEN SUBCU SCH ×4 (07:24→21:34)
[2019-06-11] MEDS: metFORMIN XR 500 MG TAB.ER.24 PO SCH ×2 (07:41→16:58)
[2019-06-11] MEDS: LISINOPRIL 5 MG TAB PO SCH (09:13)
[2019-06-11] MEDS: CEFDINIR 300 MG CAP PO SCH ×2 (09:13→21:43)
[2019-06-11] MEDS: BIFIDOBACTERIUM INFANTIS 4 MG CAP PO SCH ×2 (09:13→21:44)
[2019-06-11] MEDS: BACLOFEN 10 MG TAB PO SCH (09:13)
[2019-06-11] MEDS: PHENYTOIN 125 MG/5 ML PO SCH ×2 (09:14→21:43)
[2019-06-11] MEDS: ENOXAPARIN SODIUM 40 MG/0.4 ML SYG SUBCU SCH (09:14)
--- NOTE | 2019-06-11 11:33 | PN ---
SUPERVISING PHYSICIAN: Fransisco Hodgson MD DATE: 06/11/19 SUBJECTIVE: The patient is lying in bed. His mother is at the bedside. He is very alert today. He did have a spell overnight where he spiked a temperature up to 101. He was confused and agitated. Blood cultures were drawn. Motrin was given as well as some IV fluids. He improved overnight and has had no further issues with elevated temperature. OBJECTIVE: VITAL SIGNS: Temperature 98.2 with an overnight temperature of 101.4 Heart rate 86. Blood pressure 136/79. Respiratory rate 20. O2 saturation 96% on room air. RESPIRATORY: Diminished breath sounds throughout. CARDIAC: Regular rate and rhythm. GASTROINTESTINAL: Abdomen is soft, nondistended, nontender. Bowel sounds are positive. NEUROLOGIC: He is awake and alert. LABORATORY: Blood sugars have run between 153 and 226. Preliminary blood cultures from several days ago show no growth. Blood cultures from last night are negative to date. All other labs and films have been reviewed via the EMR. ASSESSMENT: 1. Metabolic acidosis with elevated blood sugar, but no evidence of diabetic ketoacidosis. Likely source of acidosis is sepsis with presumed community acquired pneumonia with Group A Strep pharyngitis. 2. Sepsis with the patient showing metabolic acidosis and tachycardia with infectious source noted to be Group A pharyngitis and concern for developing pneumonia. 3. Diabetes mellitus, type 2, on oral therapy with poor control. 4. Hypertension, stable. 5. Cerebral palsy with severe mental retardation. 6. Abdominal pain with mild diarrhea, most likely secondary to antibiotic administration. 7. Hypomagnesemia, resolved after supplementation. PLAN: We will continue present supportive care. After last night's episode, we will monitor him another 24 hours. I will continue to monitor his cultures and will repeat his lab and chest x-ray in the morning. He will need an ambulance after discharge as he does not walk and has to use a lift at home and will need assistance getting home. We will continue to monitor the patient closely and follow as needed. #[id number] [facility]
[2019-06-12] MEDS: CLINDAMYCIN HCL CAP 150 MG CAP PO SCH ×2 (02:59→08:24)
[2019-06-12] MEDS ORDERED: PANTOPRAZOLE SODIUM TAB 40 MG PO SCH (06:30)
--- NOTE | 2019-06-12 06:41 | RAD ---
Chest single view on 06/12/2019 CLINICAL INDICATION: Pneumonia COMPARISON: 06/10/2019 FINDINGS: This is a low-volume inspiration film. There are mild bilateral perihilar and basilar opacities consistent with mild edema, atelectasis or pneumonia. Lungs are otherwise clear. Heart is within normal limits for size. No bony abnormality is noted. IMPRESSION: Low-volume inspiration film with likely mild lower lung atelectasis but cannot exclude component of edema and/or pneumonia. Electronically signed by: Eddie Ho 06/12/2019 6:40 AM CDT
[2019-06-12 06:55] VITALS: O2SAT 96
[2019-06-12] MEDS ORDERED: metFORMIN XR 500 MG TAB.ER.24 PO ONE (07:26)
[2019-06-12] MEDS: INSULIN LISPRO 100 UNITS/ML PEN SUBCU SCH ×2 (07:39→12:00)
[2019-06-12] MEDS: metFORMIN XR 500 MG TAB.ER.24 PO SCH (07:41)
[2019-06-12] MEDS: CEFDINIR 300 MG CAP PO SCH (08:24)
[2019-06-12] MEDS: ENOXAPARIN SODIUM 40 MG/0.4 ML SYG SUBCU SCH (08:24)
[2019-06-12] MEDS: BACLOFEN 10 MG TAB PO SCH (08:24)
[2019-06-12] MEDS: LISINOPRIL 5 MG TAB PO SCH (08:24)
[2019-06-12] MEDS: BIFIDOBACTERIUM INFANTIS 4 MG CAP PO SCH (08:24)
[2019-06-12] MEDS: PHENYTOIN 125 MG/5 ML PO SCH (08:25)
[2019-06-12 10:52] VITALS: BP 106/75; TEMP 98.2
--- NOTE | 2019-06-17 13:34 | DS ---
SUPERVISING PHYSICIAN: Fransisco Hodgson MD DISCHARGE DIAGNOSIS: 1. Metabolic acidosis with elevated blood sugar, but no evidence of diabetic ketoacidosis. Likely source of acidosis is sepsis with presumed community acquired pneumonia with Group A Strep pharyngitis. 2. Sepsis with the patient showing metabolic acidosis and tachycardia with infectious source noted to be Group A pharyngitis and concern for developing pneumonia. 3. Diabetes mellitus, type 2, on oral therapy with poor control. 4. Hypertension, stable. 5. Cerebral palsy with severe mental retardation. 6. Abdominal pain with mild diarrhea, most likely secondary to antibiotic administration. 7. Hypomagnesemia, resolved after supplementation. HISTORY OF PRESENT ILLNESS: This is a 39-year-old male patient with a history of severe mental retardation and cerebral palsy. He came to the Emergency Room today after his family noted that he had been having some increased respiratory efforts, breathing fast that had significantly worsened over the previous day. He also complained of some left sided abdominal pain and had been very diaphoretic. He has a history of diabetes and hypertension and requires full assist at home. On initial presentation, lab showed leukocytosis with a white count of 15,000 with a left shift. His chemistries showed blood sugar on presentation to the Emergency Room of 317. Anion gap was elevated at 21 with a carbon dioxide of 18. They were unable to get an ABG, His liver function tests showed some elevation of AST at 85 and ALT 125. Troponin was less than 0.02, CPK was slightly elevated at 302. He had a lactic acid of 3.8, but was hemodynamically stable with initial vital signs showing temperature 98.8, tachycardic at 126 with blood pressure 144/81, O2 saturation 97% on room air. Single-view chest x-ray showed shallow inspiration with mild right medial atelectasis. Urinalysis was not obtained on admission in the Emergency Room. It was initially felt the patient was possibly in diabetic ketoacidosis given that he was slightly acidotic and his anion gap as well as his hyperglycemia, but no evidence of true DKA and he had negative ketones. Blood cultures were completed and he was started on antibiotics initially with Rocephin as well as given IV fluids. He was also placed on insulin drip He was admitted for concerns of possible pneumonia versus bladder infection resulting in hyperglycemia. He was admitted in stable condition. HOSPITAL COURSE: He was admitted for underlying sepsis, Group A Strep pharyngitis and community acquired pneumonia. He was on Rocephin and continued on clindamycin as he is allergic to penicillins and the concern of bacteria due to Group A Strep. He was given appropriate maintenance fluids. Insulin drip was discontinued. He was changed to insulin protocol per sliding scale. He did get agitated several times and was given Ativan that helped the patient with his anxiety. He did have some abdominal distress and was put on a probiotic and is most likely due to his antibiotic therapy. He required electrolyte supplementation. He progressively improved. He was to be discharged yesterday, but he ran an elevated temperature again as well as became very diaphoretic overnight. Another set of blood cultures was obtained. He was continued on his present antibiotic coverage. Today, he will be discharged home in stable condition. LABORATORY: WBCs initially were 15,000 and on discharge are 9,700. Hemoglobin and hematocrit remained stable at 13.6 and 40.8. His blood sugars ran 317 on admission and were as low as 149. He did require several doses of magnesium, but that has stabilized to 1.9. His other electrolytes were within normal limits. BUN and creatinine were stable at 6 and 0.51. Urinalysis was unremarkable. His initial blood cultures showed no growth after 5 days and his second set of blood cultures showed no initial growth. Influenza for A and B by PCR were both negative. RADIOLOGY: His final chest x-ray shows low volume inspiration film with likely mild lower lung atelectasis, but cannot exclude component of edema and/or pneumonia. Chest CT showed no evidence of acute processes in the chest given the limitations of a noncontrast technique and patient motion. DISCHARGE PLAN: The patient will be discharged home in stable condition. He is to resume his previous medications plus Align, cefdinir and clindamycin. I have also given him a prescription of lorazepam. He is to resume his previous diabetic diet. Arrangements have been made with physical therapy to be fitted for a wheelchair. He is to see Dr. Aggarwal on 06/16/19 at 3:45 PM. He is to return to the hospital or followup with Dr. Aggarwal for any problems or complications. DISCHARGE MEDICATIONS: 1. Metformin. 2. Phenytoin. 3. Naprosyn. 4. Lisinopril. 5. Hydroxyzine. 6. Baclofen. 7. Align. 8. Cefdinir. 9. Clindamycin. 10. Lorazepam. [facility][id number] [facility]
== END 2019-06-12 13:02 | disposition home or self-care (01) | DRG 871 ==
LOC: ER 05:48 → UNDOADMOB 08:26 → MS 08:26 → OBSVTOIN 08:26 → INTOOBSV 08:26
PROVIDERS: ADMIT Nurse Practitioner Family; ATTEND Nurse Practitioner Acute Care
DX: A41.9 Sepsis, unspecified organism (principal); J18.9 Pneumonia, unspecified organism; F72 Severe intellectual disabilities; K52.1 Toxic gastroenteritis and colitis; J02.0 Streptococcal pharyngitis; E11.65 Type 2 diabetes mellitus with hyperglycemia; I10 Essential (primary) hypertension; E83.42 Hypomagnesemia; G80.9 Cerebral palsy, unspecified; H54.8 Legal blindness, as defined in USA; T36.95XA Adverse effect of unspecified systemic antibiotic, initial encounter; Y92.230 Patient room in hospital as the place of occurrence of the external cause; Z88.0 Allergy status to penicillin; Z79.1 Long term (current) use of non-steroidal anti-inflammatories (NSAID); Z79.899 Other long term (current) drug therapy; Z79.84 Long term (current) use of oral hypoglycemic drugs

== ENCOUNTER → 2020-08-30 | Outpatient (CLI) | payer MEDICARE, MEDICAID | LOC: YCFC.O 12:16 | PROVIDERS: ATTEND Family Medicine | DX: E11.9 Type 2 diabetes mellitus without complications (principal); I10 Essential (primary) hypertension; E78.5 Hyperlipidemia, unspecified; G40.909 Epilepsy, unspecified, not intractable, without status epilepticus; R53.83 Other fatigue ==